=== PATIENT | male | born 1965 | race Caucasian/White ===

== ENCOUNTER 2017-06-06 13:24 | Outpatient (CLI) | payer BC ==
[~2017-06-06] VITALS: Ht 177.8 cm; Wt 97.5 kg
[~2017-06-06 13:24] MED LIST: MULT1TAB11 PO
[2017-06-06] MEDS ORDERED: NS 1,000 ML IV SCH (13:30)
[2017-06-06] MEDS ORDERED: LIDOCAINE 2% INJ 100 MG/5 ML SDV (FOR ANES.) As Ordered ONE (13:58)
[2017-06-06] MEDS ORDERED: PROPOFOL 200 MG/20 ML VIAL As Ordered ONE (13:58)
[2017-06-06 14:43] VITALS: BP 247/135
[2017-06-06] MEDS ORDERED: LISI10TA4 PO (18:30)
--- NOTE | 2017-06-06 19:32 | ECGEPIP ---
Stationary ECG Study [facility] Test Date: 2017-06-06 Pat Name: WARREN JOINER Department: Room: - Gender: M [employer]: APOLINAR : 1965 Requested By: CAYDEN Lloyd Order Number: [id number] Reading MD: Urbano Simmons Measurements Intervals [place] Rate: 51 P: -6 OR: 142 QRS: -19 QRSD: 122 T: -5 QT: 481 QTc: 446 Interpretive Statements SINUS BRADYCARDIA MODERATE INTRAVENTRICULAR CONDUCTION DELAY VOLTAGE CRITERIA FOR LVH NO PRIOR Electronically Signed On 06-06-2017 19:32:22 EDT by Urbano Simmons
--- NOTE | 2017-06-14 09:51 | ROOR ---
Patient Name: Shayne Kim Procedure Date: 06/06/2017 1:57 PM Date of : 1965 Age: 52 Room: [facility] Gender: Male Note Status: Finalized Procedure: Colonoscopy Indications: Screening for colorectal malignant neoplasm Providers: Vishal Castanon Jr, MD Referring MD: Hua Rutledge MD Requesting Provider: Medicines: Propofol per Anesthesia Complications: No immediate complications. Procedure: Pre-Anesthesia Assessment: - Prior to the procedure, a History and Physical was performed, and patient medications and allergies were reviewed. The patient is competent. The risks and benefits of the procedure and the sedation options and risks were discussed with the patient. All questions were answered and informed consent was obtained. Patient identification and proposed procedure were verified by the physician and the nurse in the pre-procedure area and in the procedure room. Mental Status Examination: alert and oriented. Airway Examination: normal oropharyngeal airway and neck mobility. Respiratory Examination: clear to auscultation. CV Examination: normal. ASA Grade Assessment: II - A patient with mild systemic disease. After reviewing the risks and benefits, the patient was deemed in satisfactory condition to undergo the procedure. The anesthesia plan was to use moderate sedation / analgesia (conscious sedation). Immediately prior to administration of medications, the patient was re-assessed for adequacy to receive sedatives. The heart rate, respiratory rate, oxygen saturations, blood pressure, adequacy of pulmonary ventilation, and response to care were monitored throughout the procedure. The physical status of the patient was re-assessed after the procedure. The Colonoscope was introduced through the anus and advanced to the cecum, identified by appendiceal orifice and ileocecal valve. The colonoscopy was performed without difficulty. The patient tolerated the procedure well. The quality of the bowel preparation was adequate and good. Findings: The rectum, recto-sigmoid colon, sigmoid colon, descending colon, transverse colon, ascending colon, cecum, appendiceal orifice and ileocecal valve appeared normal. The perianal and digital rectal examinations were normal. Pertinent negatives include normal sphincter tone, no palpable rectal lesions and no anal lesion or abnormality was detected. Impression: - The rectum, recto-sigmoid colon, sigmoid colon, descending colon, transverse colon, ascending colon, cecum, appendiceal orifice and ileocecal valve are normal. - No specimens collected. Recommendation: - Discharge patient to home (ambulatory). - Repeat colonoscopy in 10 years for screening purposes. Vishal Castanon MD Vishal Castanon Jr, MD 06/14/2017 9:51:23 AM This report has been signed electronically. Number of Addenda: 0 Note Initiated On: 06/06/2017 1:57 PM Estimated Blood Loss: Estimated blood loss: none.
== END 2017-06-06 15:15 | disposition home or self-care (01) ==
LOC: M OPP 13:24
PROVIDERS: ATTEND Surgery
DX: Z12.11 Encounter for screening for malignant neoplasm of colon (principal); R06.83 Snoring; R00.1 Bradycardia, unspecified; Z80.42 Family history of malignant neoplasm of prostate; Z80.3 Family history of malignant neoplasm of breast; Z80.7 Family history of other malignant neoplasms of lymphoid, hematopoietic and related tissues
CPT/HCPCS: 93005; G0121

== ENCOUNTER 2017-06-06 15:10 | Emergency (ER) | payer BC ==
[~2017-06-06] VITALS: Ht 172.7 cm; Wt 105.9 kg
[2017-06-06 17:31] LABS: MEAN CORPUSCULAR HGB CONC 35.6 g/dl (32.0-36.5); RED CELL DISTRIBUTION WIDTH 12.4 % (11.5-14.5); WHITE BLOOD COUNT 8.9 10^3/uL (4.0-10.0)
[2017-06-06 17:51] LABS: ANION GAP 6 MEQ/L (8-16); BLOOD UREA NITROGEN 12 MG/DL (7-18); CALCIUM LEVEL 8.2 MG/DL (8.5-10.1); CARBON DIOXIDE LEVEL 29 MEQ/L (21-32); CHLORIDE LEVEL 106 MEQ/L (98-107); GLOMERULAR FILTRATION RATE > 60.0 (>56); GLUCOSE, FASTING 81 MG/DL (70-105); MAGNESIUM LEVEL 2.2 MG/DL (1.8-2.4); POTASSIUM SERUM 3.3 MEQ/L (3.5-5.1); SODIUM LEVEL 141 MEQ/L (136-145)
[2017-06-06] MEDS ORDERED: POTASSIUM CHLORIDE 10 MEQ SR TABLET PO ONE (18:00)
[2017-06-06] MEDS ORDERED: LISINOPRIL 10 MG TAB PO ONE (18:00)
[2017-06-06 18:26] VITALS: BP 179/98
[2017-06-06] MEDS ORDERED: LISI10TA4 PO (18:30)
[2017-06-06 18:38] VITALS: BP 182/109
== END 2017-06-06 18:40 | disposition home or self-care (01) ==
LOC: M ED 15:10
DX: I10 Essential (primary) hypertension (principal); E87.6 Hypokalemia; Z79.899 Other long term (current) drug therapy

== ENCOUNTER → 2023-08-06 | Outpatient (REF) | payer BC ==
[~2023-08-06] MED LIST changes: +LISI10TA22 PO
== END ==
LOC: M LAB REF 16:58
PROVIDERS: ATTEND Family Medicine
DX: R74.8 Abnormal levels of other serum enzymes (principal)